=== PATIENT | male | born 1970 | race Caucasian/White ===

== ENCOUNTER 2018-08-15 00:25 | Emergency (ER) | payer SELFPAY ==
[2018-08-15] MEDS ORDERED: AMOXICILLIN TRIHYDRATE 500 MG CAPSULE PO ONE (05:05)
[2018-08-15] MEDS ORDERED: AMOXICILLIN TR/POT CLAVULANATE 500-125 MG TAB PO ONE (05:05)
--- NOTE | 2018-08-15 05:10 | ER Document Report ---
ED Animal Bite - General Chief Complaint: Dog Bite Stated Complaint: DOG BITE Time Seen by Provider: 08/15/18 05:05 Notes: Patient is a 48-year-old male that comes to the emergency department for chief complaint of dog bite to his left leg. He states that he was outside, his neighbor's dog came running out of an open fence, he was bitten on the left calf and lower leg area. He reports the dog was a Malay Roberts. Animal control was called and they have the dog. Patient denies any other injuries. He denies past medical history. Tetanus is up-to-date within 5 years reportedly. TRAVEL OUTSIDE OF THE [place] IN LAST 30 DAYS: No - Related Data Allergies/Adverse Reactions: No Known Allergies Allergy (Unverified 08/19/15 09:38) Past Medical History - General Information source: Patient - Social History Smoking Status: Current Every Day Smoker Drug Abuse: None Lives with: Spouse/Significant other Family History: None - Immunizations Immunizations up to date: Yes Hx Diphtheria, Pertussis, Tetanus Vaccination: Yes Review of Systems - Review of Systems Constitutional: No symptoms reported EENT: No symptoms reported Cardiovascular: No symptoms reported Respiratory: No symptoms reported Gastrointestinal: No symptoms reported Genitourinary: No symptoms reported Male Genitourinary: No symptoms reported Musculoskeletal: See HPI Skin: See HPI Hematologic/Lymphatic: No symptoms reported Neurological/Psychological: No symptoms reported Physical Exam - Vital signs Vitals: Temp Pulse Resp BP Pulse Ox 97.9 F 77 16 123/82 96 08/15/18 00:59 08/15/18 00:59 08/15/18 00:59 08/15/18 00:59 08/15/18 00:59 - Notes Notes: GENERAL: Alert, interacts well. No acute distress. HEAD: Normocephalic, atraumatic. EYES: Pupils equal, round, and reactive to light. Extraocular movements intact. ENT: Oral mucosa moist, tongue midline. Oropharynx unremarkable. Airway patent. NECK: Full range of motion. Supple. Trachea midline. LUNGS: Clear to auscultation bilaterally, no wheezes, rales, or rhonchi. No respiratory distress. HEART: Regular rate and rhythm. No murmur ABDOMEN: Soft, non-tender. Non-distended. Bowel sounds present in all 4 quadrants. GENITOURINARY: Deferred EXTREMITIES: Left calf with a puncture wound, abrasion, and another puncture wound over the mid area of the calf. Down below this laterally there is another small abrasion and puncture wound. No large open wounds, no severe tenderness, no current bleeding, no abnormal swelling. Range of motion at the knee, ankle intact. Normal distal neurovascular exam. BACK: no cervical, thoracic, lumbar midline tenderness. No saddle anesthesia, normal distal neurovascular exam. NEUROLOGICAL: Alert and oriented x3. Normal speech. . SKIN: Warm, dry, normal turgor. No rashes or lesions noted. Course - Re-evaluation Re-evalutation: Examination shows puncture wounds/superficial tears, abrasions, however these are still easy to examine and there is no evidence of foreign body. No gaping wounds needing to be repaired. Wound was cleaned, dressed. Tetanus reported to be up-to-date. Patient started on antibiotics. I discussed rabies immunoglobulin/vaccine but this was declined because patient is confident that the dog does not have rabies, he is familiar with this dog. Dog is in custody. Discussed expectations, follow-up, wound care, return precautions. Patient states understanding and agreement. - Vital Signs Vital signs: Temp Pulse Resp BP Pulse Ox 97.6 F 70 19 133/92 H 100 08/15/18 05:43 08/15/18 05:43 08/15/18 05:43 08/15/18 05:43 08/15/18 05:43 Discharge - Discharge Clinical Impression: Dog bite Qualifiers: Encounter type: initial encounter Qualified Code(s): W54.0XXA - Bitten by dog, initial encounter Disposition: HOME, SELF-CARE Additional Instructions: Keep area clean, clean with soap and water, apply topical dressing. Take antibiotics as prescribed to reduce risk of infection. I recommend taking a probiotic [id number] to avoid diarrhea while taking this medication. The area may have some bleeding and swelling, I recommended that you elevate this for the first 1 to 2 days if possible. Follow-up with primary care. Return for any concerning symptoms including developing pain, redness, discolored discharge, swelling, or any other concerning symptoms. Prescriptions: Amox Tr/Potassium Clavulanate [Augmentin 875-125 Tablet] 1 tab PO BID 7 Days #14 tablet Forms: Return to Work
[2018-08-15 05:43] VITALS: BP 133/92
== END 2018-08-15 05:43 | disposition home or self-care (01) ==
LOC: ER 00:25
DX: S81.852A Open bite, left lower leg, initial encounter (principal); W54.0XXA Bitten by dog, initial encounter; F17.200 Nicotine dependence, unspecified, uncomplicated
CPT/HCPCS: 99283